=== PATIENT | male | born 1995 | race Two or more races ===

== ENCOUNTER 2017-11-17 17:13 | Emergency (ER) | payer OTHER ==
[2017-11-17] MEDS ORDERED: ONDANSETRON 4 MG/2 ML VIAL ONE (17:27)
[2017-11-17] MEDS ORDERED: NS 1,000 ML IV ONE ×2 (17:27→19:23)
[2017-11-17] MEDS ORDERED: LORazepam 2 MG/ML INJ IVP ONE (17:27)
[2017-11-17] MEDS ORDERED: ONDANSETRON 4 MG/2 ML VIAL IVP ONE (17:27)
[2017-11-17] MEDS ORDERED: LORazepam 2 MG/ML INJ ONE (17:28)
--- NOTE | 2017-11-17 17:38 | EDPHY ---
H & P Smoking Status: Never smoked Time Seen by Provider: 11/17/17 17:20 HPI/ROS: CHIEF COMPLAINT: Vomiting, epigastric abdominal pain HISTORY OF PRESENT ILLNESS: 22-year-old male presents to the emergency department by private vehicle with multiple episodes of vomiting since this morning. The patient woke up feeling nauseous and has vomited multiple times, "too numerous to count". He has some mild pain in the epigastric area. No chest pain or difficulty breathing. No diarrhea. No back pain. No fevers or chills. No urinary symptoms. He the patient states "I am very dehydrated ". He does smoke marijuana daily. He denies alcohol abuse. Denies any other substance abuse. No known ill contacts. No recent travel. No reported trauma. REVIEW OF SYSTEMS: Constitutional: No fever, no chills. Eyes: No double or blurry vision. ENT: No sore throat. Respiratory: No cough, no shortness of breath. Cardiac: No chest pain. Gastrointestinal: As above. No diarrhea. Genitourinary: No dysuria. Musculoskeletal: No neck or back pain. Skin: No rashes. Neurological: No headache. (Trupti Alarcon) Past Medical/Surgical History: Daily marijuana use, GERD, peptic ulcer disease (Trupti Alarcon) Social History: Single (Trupti Alarcon) Physical Exam: General Appearance: Alert, mild to moderate distress. Actively vomiting. Eyes: Pupils equal and round. Extraocular motions are all intact. ENT: Mouth: Mucous membranes appears very dry. Respiratory: No wheezing, rhonchi, or rales, lungs are clear to auscultation. Cardiovascular: Regular rate and rhythm. Gastrointestinal: Abdomen is soft and nontender, no masses, no rebound or guarding, bowel sounds normal. No CVA tenderness bilaterally. Neurological: Alert and oriented x 3, cranial nerves II through XII grossly intact Skin: Warm and dry, no rashes. Musculoskeletal: Nontender to palpate along the cervical, thoracic or lumbar spine. Neck is supple. Extremities: Full range of motion and no peripheral edema. Psychiatric: Patient is oriented X 3, there is no agitation. (Trupti Alarcon) Constitutional: Initial Vital Signs Temperature (C) 36.4 C 11/17/17 17:21 Heart Rate 59 L 12/30/17 17:21 Respiratory Rate 18 11/17/17 17:21 Blood Pressure 152/82 H 11/17/17 17:21 O2 Sat (%) 99 11/17/17 17:21 O2 Delivery Mode Room Air Allergies/Adverse Reactions: No Known Allergies Allergy (Unverified 11/17/17 17:23) Home Medications: Medication Instructions Recorded Zantac 11/17/17 Medical Decision Making ED Course/Re-evaluation: Patient had IV established and was given IV normal saline, 4 mg of IV Zofran and 0.5 mg of IV lorazepam. Patient was given 12.5 mg of IV Phenergan as well. Patient received IV normal saline. The patient was still continued to feel nauseous. He was also seen examined by Dr. Knowles, secondary supervising physician. He recommended 2.5 mg IV Haldol. Patient was re-evaluated was feeling much better although when he tried to drink something he began retching and feeling nauseous again. Patient was given additional 2.5 mg of IV Haldol and feeling much better. Patient will be discharged home. (Trupti Alarcon) Differential Diagnosis: Including but not limited to gastritis, dehydration, electrolyte abnormality, GERD, peptic ulcer disease, pancreatitis (Trupti Alarcon) Other Provider: I evaluated and participated in the management of the patient. I also evaluated the patient independently. My co-signature indicates that I have reviewed this chart and I agree with the findings and plan of care as documented. My personal H&P findings include: The patient presents the ED with intractable nausea and vomiting. The patient does have a history of chronic marijuana use. The patient denies any diarrhea or fever. PHYSICAL EXAM General Appearance: Alert, mild discomfort secondary to active retching Eyes: Pupils equal and round no pallor or injection ENT, Mouth: Mucous membranes moist Respiratory: There are no retractions, lungs are clear to auscultation Cardiovascular: Regular rate and rhythm Gastrointestinal: Minimal abdominal tenderness, no peritoneal signs no localizing right upper quadrant or right lower quadrant tenderness Neurological: A&O, normal motor function, normal sensory exam, normal cranial nerves Skin: Warm and dry, no rashes Musculoskeletal: Neck is supple nontender Extremities: symmetrical, full range of motion ED course: The patient presents to the ED with acute vomiting. He had an IV established. He received a L of normal saline. He received IV Ativan and Phenergan. The patient continued to have ongoing retching and nausea. He received 2.5 mg of Haldol at 8:00 p.m.. I re-evaluated the patient at 8:30 p.m.. He is currently feeling better. His nausea and retching has resolved. (Bernard Knowles) - Data Points Laboratory Results: Laboratory Results 11/17/17 17:36 11/17/17 17:36 11/17/17 11/17/17 17:36 17:36 WBC 9.41 10^3/uL 10^3/uL (3.80-9.50) RBC 5.11 10^6/uL 10^6/uL (4.40-6.38) Hgb 16.5 g/dL g/dL (13.7-17.5) Hct 45.6 % % (40.0-51.0) MCV 89.2 fL fL (81.5-99.8) MCH 32.3 pg pg (27.9-34.1) MCHC 36.2 g/dL g/dL (32.4-36.7) RDW 11.5 % % (11.5-15.2) Plt Count 139 10^3/uL L 10^3/uL (150-400) MPV 12.1 fL H fL (8.7-11.7) Neut % (Auto) 87.1 % H % (39.3-74.2) Lymph % (Auto) 8.8 % L % (15.0-45.0) [place] % (Auto) 3.6 % L % (4.5-13.0) Eos % (Auto) 0.0 % L % (0.6-7.6) Baso % (Auto) 0.2 % L % (0.3-1.7) Nucleat RBC Rel Count 0.0 % % (0.0-0.2) Absolute Neuts (auto) 8.19 10^3/uL H 10^3/uL (1.70-6.50) Absolute Lymphs (auto) 0.83 10^3/uL L 10^3/uL (1.00-3.00) Absolute Monos (auto) 0.34 10^3/uL 10^3/uL (0.30-0.80) Absolute Eos (auto) 0.00 10^3/uL L 10^3/uL (0.03-0.40) Absolute Basos (auto) 0.02 10^3/uL 10^3/uL (0.02-0.10) Absolute Nucleated RBC 0.00 10^3/uL 10^3/uL (0-0.01) Immature Gran % 0.3 % % (0.0-1.1) Immature Gran # 0.03 10^3/uL 10^3/uL (0.00-0.10) Sodium 142 mEq/L mEq/L (134-144) Potassium 3.9 mEq/L mEq/L (3.5-5.2) Chloride 102 mEq/L mEq/L (97-110) Carbon Dioxide 20 mEq/l L mEq/l (22-31) Anion Gap 20 mEq/L H mEq/L (8-16) BUN 9 mg/dL mg/dL (7-23) Creatinine 0.9 mg/dL mg/dL (0.7-1.3) Estimated GFR > 60 Glucose 162 mg/dL H mg/dL (70-100) Calcium 10.2 mg/dL mg/dL (8.5-10.4) Medications Given: Discontinued Medications Haloperidol Lactate (Haldol Injection) 2.5 mg IVP EDNOW ONE Stop: 11/17/17 19:54 Last Admin: 11/17/17 19:56 Dose: 2.5 mg Haloperidol Lactate (Haldol Injection) 2.5 mg IVP EDNOW ONE Stop: 11/17/17 21:33 Last Admin: 11/17/17 21:34 Dose: 2.5 mg Sodium Chloride (Ns) 1,000 mls @ 0 mls/hr IV ONCE ONE PRN Reason: Wide Open Stop: 11/17/17 17:28 Last Admin: 11/17/17 17:38 Dose: 1,000 mls Sodium Chloride (Ns) 1,000 mls @ 3,000 mls/hr IV ONCE ONE Stop: 11/17/17 19:42 Last Admin: 11/17/17 19:26 Dose: 1,000 mls Lorazepam (Ativan Injection) 0.5 mg IVP EDNOW ONE Stop: 11/17/17 17:28 Last Admin: 11/17/17 17:38 Dose: 0.5 mg Ondansetron HCl (Zofran) 4 mg IVP EDNOW ONE Stop: 11/17/17 17:28 Last Admin: 11/17/17 17:38 Dose: 4 mg Pantoprazole Sodium (Protonix) 40 mg IVP EDNOW ONE Stop: 11/17/17 17:57 Last Admin: 11/17/17 18:03 Dose: 40 mg Promethazine HCl (Phenergan) 12.5 mg IVP EDNOW ONE Stop: 11/17/17 18:44 Last Admin: 11/17/17 19:05 Dose: 12.5 mg Departure - Departure Disposition: Home, Routine, Self-Care Clinical Impression: Dehydration Vomiting Qualifiers: Vomiting type: unspecified Vomiting Intractability: non-intractable Nausea presence: with nausea Qualified Code(s): R11.2 - Nausea with vomiting, unspecified Condition: Good Instructions: Dehydration (ED), Acute Nausea and Vomiting (ED), Abdominal Pain (ED) Additional Instructions: Clear liquids and then slowly advance as tolerated. Referrals: Min Fisher DO [Doctor of Osteopathy] - 1 day, if not improved (primary care provider second facing baster )
[2017-11-17] MEDS ORDERED: PANTOPRAZOLE SODIUM 40 MG VIAL IVP ONE (17:56)
[2017-11-17 18:01] LABS: PLATELET COUNT 139 10^3/uL (150-400)
[2017-11-17] MEDS ORDERED: PROMETHAZINE HCL 25 MG/ML INJ IVP ONE (18:43)
[2017-11-17] MEDS ORDERED: NS 100 ML BAG IV ONE (19:02)
[2017-11-17] MEDS ORDERED: HALOPERIDOL LACT 5 MG/ML INJ IVP ONE ×2 (19:53→21:32)
[2017-11-17] MEDS ORDERED: HALOPERIDOL LACT 5 MG/ML INJ ONE (21:32)
[2017-11-17 22:29] VITALS: BP 128/81; PULSE 84; RESP 19; TEMP 98.1; O2SAT 97
== END 2017-11-17 22:50 | disposition home or self-care (01) ==
DX: R11.2 Nausea with vomiting, unspecified (principal); E86.0 Dehydration
CPT/HCPCS: 96374; J1630; J2060; J2405; J2550